=== PATIENT | male | born 1965 | race Caucasian/White ===

== ENCOUNTER 2020-10-27 07:26 | Emergency (ER) | payer OTHER ==
[~2020-10-27] VITALS: Ht 177.8 cm; Wt 133.8 kg
--- NOTE | 2020-10-27 07:43 | NUR ---
Dr Queen at the bedside for MSE.
[2020-10-27] MEDS ORDERED: CARV6.252 PO (07:55)
[2020-10-27] MEDS ORDERED: FURO20TA4 PO (07:55)
[2020-10-27] MEDS ORDERED: CEPH500T PO (07:55)
[2020-10-27] MEDS ORDERED: NAPR220C15 PO (07:55)
[2020-10-27] MEDS ORDERED: ASPI81TA31 PO (07:55)
[2020-10-27] MEDS ORDERED: ATOR20TA PO (07:55)
[2020-10-27] MEDS ORDERED: VANCOMYCIN IV 1,000 MG in IV DEXTROSE 5% 250 ML IV ONE (08:00)
[2020-10-27 08:15] LABS: HEMATOCRIT 42.3 % (36.7-47.1); MEAN CORPUSCULAR HEMOGLOBIN 31.4 uug (23.8-33.4); MEAN CORPUSCULAR VOLUME 92.2 fL (73.0-96.2); PLATELET COUNT (AUTO) 285 K/uL (152-348)
[2020-10-27 08:21] LABS: POTASSIUM 4.2 mmol/L (3.5-5.1)
[2020-10-27] MEDS ORDERED: VANCOMYCIN IV 200 ML ONE (08:25)
[2020-10-27 08:27] LABS: BILIRUBIN,DIRECT 0.1 mg/dL (0.0-0.2); BILIRUBIN,TOTAL 0.6 mg/dL (0.2-1.0)
[2020-10-27] MEDS ORDERED: NEOMY/BACITRA/POLYMYXIN B OINT UD PACKET TP ONE ×2 (08:45→08:53)
[2020-10-27] MEDS ORDERED: SULF1TAB48 PO (08:47)
--- NOTE | 2020-10-27 10:29 | NUR ---
IV removed. Catheter intact and site benign. Pressure and 4x4 gauze applied to site. No bleeding noted.
--- NOTE | 2020-10-27 10:30 | NUR ---
Patient discharged to home in stable condition. Written and verbal after care instructions given. Patient verbalizes understanding of instructions. Stressed follow up or return to ER for worsening s/s.
[2020-10-27 10:31] VITALS: BP 148/89
== END 2020-10-27 10:34 | disposition home or self-care (01) ==
LOC: ER 07:28
DX: L03.116 Cellulitis of left lower limb (principal); S81.802A Unspecified open wound, left lower leg, initial encounter; X58.XXXA Exposure to other specified factors, initial encounter; Y92.89 Other specified places as the place of occurrence of the external cause; M79.662 Pain in left lower leg; Z79.02 Long term (current) use of antithrombotics/antiplatelets; Z79.899 Other long term (current) drug therapy; R03.0 Elevated blood-pressure reading, without diagnosis of hypertension
CPT/HCPCS: 36415; 80048; 80076; 82962; 83605; 85025; 87040 ×2; 96365; 96366; 99284; J3370; A4663